=== PATIENT | male | born 1935 | race Caucasian/White ===

== ENCOUNTER → 2016-11-24 | Outpatient (REF) | payer MEDICARE ==
[~2016-11-24] MED LIST: ASPI1TAB PO; ATOR1TAB21 PO; BREO1INH INH; DICL50TA2 PO; DICL50TAB FT; ENAL5TAB PO; INCR1INH INH; METO25TAB PO; NITR0.4S14 SL; NORC5TAB PO; PENT400T19 PO; PENT400T47 PO; PERI4TAB PO; PLAV75TA38 PO; PROA1AER INH; SYMB16INH INH; VITMTA PO; trental
[2016-11-24 16:51] LABS: ALBUMIN 3.6 GM/DL (3.2-5.2); ALBUMIN/GLOBULIN RATIO 0.97 (1.00-1.93); ALKALINE PHOSPHATASE 90 U/L (45-117); ALT/SGPT 24 U/L (12-78); ANION GAP 8 MEQ/L (8-16); AST/SGOT 19 U/L (15-37); BILIRUBIN,TOTAL 0.5 MG/DL (0.2-1.0); BLOOD UREA NITROGEN 20 MG/DL (7-18); CALCIUM LEVEL 8.7 MG/DL (8.8-10.2); CARBON DIOXIDE LEVEL 29 MEQ/L (21-32); CHLORIDE LEVEL 100 MEQ/L (98-107); CHOLESTEROL LEVEL 123 MG/DL (<200); CREATININE FOR GFR 1.22 MG/DL (0.70-1.30); GLOMERULAR FILTRATION RATE > 60.0 (>35); GLUCOSE, FASTING 89 MG/DL (83-110); POTASSIUM SERUM 4.5 MEQ/L (3.5-5.1); SODIUM LEVEL 137 MEQ/L (136-145); TOTAL PROTEIN 7.3 GM/DL (6.4-8.2); TRIGLYCERIDES LEVEL 51 MG/DL (<150)
[2016-11-24 19:07] LABS: BASO % 0.3 % (0.0-1.0); EOS # 0.2 K/mm3 (0.0-0.50); EOS % 2.3 % (0.0-3.0); LARGE UNSTAINED CELL # 0.2 K/mm3 (0.0-0.4); LARGE UNSTAINED CELL % 2.3 % (0.0-4.0); LYMPH # 1.2 K/mm3 (1.5-4.5); LYMPH % 16.3 % (24.0-44.0); MEAN CORPUSCULAR HEMOGLOBIN 28.7 pg (27.0-33.0); MEAN CORPUSCULAR VOLUME 95.4 fl (80.0-96.0); MONO # 0.6 K/mm3 (0.0-0.8); MONO % 8.1 % (0.0-5.0); NEUTROPHILS # 5.3 K/mm3 (1.8-7.7); NEUTROPHILS % 70.8 % (36.0-66.0); PLATELET COUNT, AUTOMATED 238 k/mm3 (150-450); RED CELL DISTRIBUTION WIDTH 13.7 % (11.5-14.5); WHITE BLOOD COUNT 7.5 K/mm3 (4.0-10.0)
== END ==
LOC: M SFHCCAPE 08:25
PROVIDERS: ATTEND Physician Assistant
DX: E78.00 Pure hypercholesterolemia, unspecified (principal); I10 Essential (primary) hypertension; Z12.5 Encounter for screening for malignant neoplasm of prostate; Z79.899 Other long term (current) drug therapy; Z79.82 Long term (current) use of aspirin
CPT/HCPCS: 36415; 80053; 80061; 83036; 84443; 85025; 93005; G0103; G0463

== ENCOUNTER → 2016-12-15 | Outpatient (CLI) | payer MEDICARE ==
--- NOTE | 2016-12-15 11:54 | REP ---
THORACIC SPINE SERIES: AP and lateral views of the thoracic spine are performed with five total views obtained. There is an acute 60% compression fracture of the T2 vertebral body. I see no other evidence of acute compression fracture. There is mild accentuation of the thoracic kyphosis. Diffuse bridging osteophytes are seen and there is diffuse disc space narrowing and subchondral sclerosis. There is curvature of the thoracic spine, convex to the right. IMPRESSION: Acute 60% compression fracture of the T9 vertebral body. Recommend CT to evaluate for any displaced fracture fragments.
--- NOTE | 2016-12-15 11:55 | REP ---
LUMBOSACRAL SPINE SERIES: Five views lumbosacral spine performed. No compression fracture is seen of the lumbar vertebral bodies, which are normal in height and well aligned with normal lumbar lordosis. There is no spondylolysis or spondylolisthesis. There is moderate diffuse spurring. There is mild disc space narrowing and subchondral sclerosis at L1-2, L2-3 and L3-4, with more moderate to severe degree of disc space narrowing at L4-5 and L5-S1. There is sclerosis at the facets of L4-5 and L5-S1. The posterior elements appear intact. IMPRESSION: Degenerative changes without evidence of fracture or dislocation.
== END ==
LOC: M CLY 10:21
PROVIDERS: ATTEND Physician Assistant
DX: M48.54XA Collapsed vertebra, not elsewhere classified, thoracic region, initial encounter for fracture (principal); X58.XXXA Exposure to other specified factors, initial encounter; Y93.9 Activity, unspecified; Y92.9 Unspecified place or not applicable; Y99.8 Other external cause status; M47.816 Spondylosis without myelopathy or radiculopathy, lumbar region

== ENCOUNTER → 2016-12-16 | Outpatient (CLI) | payer MEDICARE ==
--- NOTE | 2016-12-16 12:12 | REP ---
CT THORACIC SPINE: HISTORY: T9 fracture. There is an acute compression fracture of the T9 vertebral body with moderate loss of vertebral body height and very minimal retropulsion. There is minimal spinal canal compromise. A small amount of air is present in the T8-9 intervertebral disc and T10 vertebral body. Punctate collections of air are present in the right paravertebral soft tissue. A very small paravertebral hematoma is present. There is no definite disc bulge or herniation. There is loss of height of several mid and the lower thoracic intervertebral discs. Anterior osteophytes are present throughout the thoracic spine. IMPRESSION: Acute T9 compression fracture with moderate height loss and minimal retropulsion. Signed by Jaron Serrano MD 12/16/2016 12:17 P
== END ==
LOC: M RAD 10:17
PROVIDERS: ATTEND Physician Assistant
DX: M48.54XA Collapsed vertebra, not elsewhere classified, thoracic region, initial encounter for fracture (principal); X58.XXXA Exposure to other specified factors, initial encounter; Y93.9 Activity, unspecified; Y92.9 Unspecified place or not applicable; Y99.8 Other external cause status

== ENCOUNTER 2016-12-18 14:09 | Emergency (ER) | payer MEDICARE ==
[~2016-12-18] VITALS: Ht 172.7 cm; Wt 70.3 kg
[~2016-12-18 14:09] MED LIST changes: -BREO1INH INH; -DICL50TA2 PO; -DICL50TAB FT; -INCR1INH INH; -NITR0.4S14 SL; -NORC5TAB PO; -PENT400T47 PO; -PROA1AER INH; -SYMB16INH INH; -trental
[2016-12-18] MEDS ORDERED: SYMB16INH INH (14:41)
[2016-12-18] MEDS ORDERED: PROA1AER INH (14:42)
[2016-12-18] MEDS ORDERED: trental (14:44)
[2016-12-18] MEDS ORDERED: NORC5TAB PO (14:46)
[2016-12-18] MEDS ORDERED: DICL50TAB FT (14:46)
[2016-12-18 15:13] LABS: BASO % 0.3 % (0.0-1.0); EOS # 0.1 K/mm3 (0.0-0.50); EOS % 1.3 % (0.0-3.0); LARGE UNSTAINED CELL # 0.1 K/mm3 (0.0-0.4); LARGE UNSTAINED CELL % 1.5 % (0.0-4.0); LYMPH # 1.1 K/mm3 (1.5-4.5); LYMPH % 10.2 % (24.0-44.0); MEAN CORPUSCULAR HEMOGLOBIN 29.6 pg (27.0-33.0); MEAN CORPUSCULAR HGB CONC 32.2 g/dl (32.0-36.5); MEAN CORPUSCULAR VOLUME 91.9 fl (80.0-96.0); MONO # 0.8 K/mm3 (0.0-0.8); MONO % 8.2 % (0.0-5.0); NEUTROPHILS # 7.4 K/mm3 (1.8-7.7); NEUTROPHILS % 78.5 % (36.0-66.0); PLATELET COUNT, AUTOMATED 243 k/mm3 (150-450); WHITE BLOOD COUNT 9.4 K/mm3 (4.0-10.0)
[2016-12-18 16:02] LABS: ANION GAP 8 MEQ/L (8-16); BLOOD UREA NITROGEN 27 MG/DL (7-18); CALCIUM LEVEL 8.3 MG/DL (8.8-10.2); CARBON DIOXIDE LEVEL 30 MEQ/L (21-32); CHLORIDE LEVEL 98 MEQ/L (98-107); CREATININE FOR GFR 1.17 MG/DL (0.70-1.30); GLOMERULAR FILTRATION RATE > 60.0 (>35); GLUCOSE, FASTING 113 MG/DL (83-110); POTASSIUM SERUM 4.6 MEQ/L (3.5-5.1); SODIUM LEVEL 136 MEQ/L (136-145)
[2016-12-18] MEDS ORDERED: NORCO, ANEXSIA 5/325MG TABLET (HYDROcodone/ACETAMINOPHEN) PO ONE ×2 (18:45→23:45)
--- NOTE | 2016-12-18 18:50 | REPUSA ---
CT of the lumbar spine without contrast Clinical history: Pain. Technique: Multiple axial CT images were obtained through the lumbar spine without administration of contrast. Coronal and sagittal 3-D reconstructed images were also obtained. Findings: The lumbar vertebral bodies are in satisfactory positioning and alignment. No fractures or dislocatio ns are demonstrated. Intervertebral disc spaces are narrowed at all levels throughout the lumbar spin e, most severe at L4/L5 and L5/S1. At these levels, there is significant sclerosis as well as disc os teophyte complexes. This causes moderately severe bilateral neural foraminal narrowing at these. Mode rate bilateral facet arthropathy is noted. There is no evidence of facet subluxation. The spinal wayne l demonstrates normal caliber and contour without evidence of spinal stenosis. The surrounding soft t issues are within normal limits. Impression: 1. No acute fracture or traumatic injury. 2. Multilevel degenerative disc disease with moderately severe spondylosis. 3. The degenerative changes are most severe at L4/L5 and L5/S1, where there is moderately severe disc osteophyte complexes and disc bulges. This causes moderately severe bilateral neural foraminal narro wing. There is no evidence of central canal stenosis however.
--- NOTE | 2016-12-18 19:30 | REPUSA ---
CT of the thoracic spine without contrast Clinical history: Pain. Technique: Multiple axial CT images were obtained through the thoracic spine without administration o f contrast. Coronal and sagittal 3-D reconstructed images were also obtained. Findings: The vertebral bodies are in satisfactory positioning and alignment. There is a chronic compression fr acture noted at T9, with anterior wedging appreciated. No acute fractures or dislocations are demons trated. Intervertebral disc spaces are moderately narrowed from T8 through T 11. There is no evidence of facet subluxation. The neural foramen appear grossly patent. The spinal canal demonstrates normal caliber and contour without evidence of spinal stenosis. The surrounding soft tissues are within nor mal limits. Impression: No acute traumatic injury. Chronic compression fracture of T9 with anterior wedging appre ciated. Multilevel degenerative disc disease as described.
[2016-12-18] MEDS ORDERED: BREO1INH INH (21:51)
[2016-12-18] MEDS ORDERED: PENT400T47 PO (21:51)
[2016-12-18] MEDS ORDERED: NITR0.4S14 SL (21:51)
[2016-12-18] MEDS ORDERED: DICL50TA2 PO (21:51)
[2016-12-18] MEDS ORDERED: INCR1INH INH (21:51)
[2016-12-18] MEDS ORDERED: dexameTHASONE 20 MG/5 ML VIAL (J1100) IV ONE (23:30)
[2016-12-18] MEDS ORDERED: MORPHINE 4 MG/ML 1ML SYRINGE IV ONE (23:30)
[2016-12-19 00:29] VITALS: BP 148/73
--- NOTE | 2016-12-20 14:10 | ED PDOC ---
Provider Note ct l spine faxed to [facility] Ariana Watkins MD Dec 20, 2016 14:10
== END 2016-12-19 00:33 | disposition short-term general hospital (02) ==
LOC: M ED 15:49
DX: S22.070A Wedge compression fracture of T9-T10 vertebra, initial encounter for closed fracture (principal); X58.XXXA Exposure to other specified factors, initial encounter; Y92.89 Other specified places as the place of occurrence of the external cause; Y93.89 Activity, other specified; Y99.8 Other external cause status; I10 Essential (primary) hypertension; I25.10 Atherosclerotic heart disease of native coronary artery without angina pectoris; Z79.899 Other long term (current) drug therapy; Z79.01 Long term (current) use of anticoagulants; Z79.51 Long term (current) use of inhaled steroids
CPT/HCPCS: 36415; 72128; 72131; 80048; 81001; 85025; 96374; 99284; J1100